=== PATIENT | female | born 1995 | race Caucasian/White ===

== ENCOUNTER 2023-12-08 07:54 | Emergency (ER) | payer SELFPAY ==
[~2023-12-08] VITALS: Ht 182.9 cm; Wt 95.0 kg
[2023-12-08 08:04] VITALS: O2SAT 97
[2023-12-08] MEDS ORDERED: ACET-2708 MT (08:28)
[2023-12-08] MEDS ORDERED: OFLO5DRO4 LEFT EAR (08:28)
[2023-12-08] MEDS: HYDROCODONE/ACETAMINOPHEN 10/325MG TABLET PO ONE (08:30)
[2023-12-08 08:47] VITALS: BP 131/84; PULSE 82; RESP 16; TEMP 98.2
== END 2023-12-08 09:00 | disposition home or self-care (01) ==
LOC: ER 07:54
DX: H60.92 Unspecified otitis externa, left ear (principal); J45.909 Unspecified asthma, uncomplicated; Z98.890 Other specified postprocedural states
CPT/HCPCS: 81025; 99283; Z7610